=== PATIENT | male | born 1945 | race Caucasian/White ===

== ENCOUNTER 2018-12-29 09:30 | Outpatient (CLI) | payer MEDICARE, OTHER ==
--- NOTE | 2019-02-14 15:56 | CONSULTATION REPORT ---
DATE OF CONSULTATION: 12/29/2018 CHIEF COMPLAINT: Headache. HISTORY OF PRESENT ILLNESS: The patient is a 73-year-old male who presents for evaluation of chronic headache. He was referred by his primary care physician, Dr. Sly Donovan. The patient has also recently seen Neurology at [facility] in [place], [place]. I do have the note from the Neurology Clinic from October. There is no firm diagnosis for his headache. The patient states that he has had MRI of the brain and cervical spine as well as cervical spine x-rays that were ordered by the Neurology office, however, he did not bring in any radiology report or CD images of those studies for my review, and I do not have access to the Neurology Clinic notes. He does have a follow-up with the neurology group on 01/18/19. He states that he has not been given a diagnosis and has not been given any treatments for his headache other than some pain medication. In October he was given oxycodone with Tylenol 10/325 b.i.d. and the patient states in November that was changed to oxycodone 5s without Tylenol b.i.d. The patient says he has headaches 5-6 times a week and when he has a headache he will take anywhere from 1 to 3 of the oxycodone 5s but on days where he does not have a headache he wont take any oxycodone. The patient states that his headaches began about 1-1/2 years ago. He denies any trauma or specific inciting event. He does report having a history of temporal arteritis in 2010 but that did resolve over 8 years ago. The patient describes his headache as intermittent, severe, stabbing, burning, shooting in character, rated 8/10 to 10/10 when present but is 0/10 when it is not present. The pain is located primarily at the right temporal region with radiation behind the orbit, radiation to the frontal region of the cranium and the temporal region of the cranium with some radiation into the parietal region as well. He also has some pain radiation intermittently to the right jaw. He reports a much milder pain on the left side in the same anatomic region but much less in severity. He denies any aura, photophobia, nausea, vomiting, vision changes with the headaches. He denies any specific triggers or worsening factors for the pain. The only thing that has given any pain relief has been the oxycodone. He did try various [id number] medicines without relief. He has seen his credit review officer and had his eyes examined and other than wearing glasses he was told there were no other problems with his eyes. He has also seen his dentist about the jaw pain and the dentist did not have any concerns or any findings. He denies chest pain, palpitations, dyspnea, nausea, vomiting, diarrhea, vertigo, fevers, chills, dysuria, constipation or increased depression or anxiety. PAST MEDICAL HISTORY: Positive for anxiety, back pain, depression, heart disease, irritable bowel syndrome, shortness of breath with exertion. PAST SURGICAL HISTORY: He had left shoulder surgery in the past and had cardiac stents placed in 2015 and 2016. FAMILY HISTORY: Positive for cancer in his dad and 1 sibling. SOCIAL HISTORY: The patient is retired. He smokes about 1 pack per day with a 60-plus pack year history. He denies any alcohol or recreational drug use. REVIEW OF SYSTEMS: A 14-point review of systems was performed and was positive for fatigue, decreased appetite, loss of hearing, glasses, shortness of breath with activity, leg swelling after climbing stairs, shortness of breath with walking, headaches, arm and leg weakness. For full details of the review of systems, please see the medical chart. CURRENT MEDICATIONS INCLUDE: Rexulti 1 mg; hydroxyzine 25 mg; metoprolol ER 25 mg, aspirin 81 mg, trazodone 100 mg, amlodipine 10 mg, atorvastatin 40 mg, ranitidine 300 mg, metaxolone 800 mg and oxycodone 5 mg b.i.d. p.r.n. PHYSICAL EXAMINATION: VITALS: Temperature 97, blood pressure 118/74, pulse 69, respirations 22, oxygen saturation 97% on room air. GENERAL: The patient is alert and oriented x 4, in no acute distress. HEENT: Pupils are equal and reactive to light and accommodation. Extraocular muscles intact. CARDIOVASCULAR: Regular rate and rhythm. No murmurs, rubs or gallops. PULMONARY: Lungs are clear to auscultation bilaterally. ABDOMEN: Soft, nontender, nondistended. No hepatosplenomegaly. : Deferred. SKIN: No rashes or lesions observed. MUSCULOSKELETAL: Inspection of neck shows no gross abnormalities. Cervical spine range of motion is full in flexion, extension, lateral rotation and side bending with some mild pain at end range of extension. There is mild tenderness to palpation at the bilateral cervical paraspinal muscles and upper trapezius muscles. Spurlings is negative bilaterally. NEUROLOGIC: Cranial nerves II-XII grossly intact. Deep tendon reflexes are 2+/4 for bilateral biceps, brachioradialis and triceps tendons symmetrically. Manual muscle testing shows normal strengths of 5/5 for bilateral shoulder abduction, elbow flexion, elbow extension, wrist extension, finger flexion, finger abduction. Sensation to light touch is intact in all dermatomes in bilateral upper extremities symmetrically. Spurlings is negative bilaterally. Negative Hofmanns bilaterally. ASSESSMENT: 1. Chronic headache pain. 2. Probable right trigeminal neuralgia. The patients symptoms and physical exam are most consistent with a trigeminal neuralgia on the right and to a milder degree on the left, however, I have not been able to review any of his imaging studies for further evaluation. PLAN: 1. I recommend right trigeminal nerve block to assist in diagnosis of trigeminal neuralgia as well as treatment of his headache pain by using a combination of anesthetic and steroid with the injection. The patient is uncertain whether he wants to have the injection because he states that he is afraid of injections and he would like some time to think about it. I advised the patient to contact the clinic if he decides to proceed with the injections. 2. Continue to follow up with the Neurology Clinic at [facility] for further evaluation of his chronic headaches as well. 3. The patient asked if I could prescribe pain medications and unfortunately I advised him that I am not performing pain medication management or prescribing pain medications out of this clinic in [place] since I am here only intermittently and primarily here for surgeries and procedures. However, I did offer to have the patient follow up with me at [facility] in [place] where I could provide the pain management because I am there routinely and that clinic is set up to do pain medication management. The patient would like to think about that and will contact the clinic if he wants to see me in [place] as well. Note: I spent over 35 minutes with the patient of which greater than 50% was spent in counseling and coordination of care for his chronic headache pain ([id number]). Breezy Middleton M.D. EARL/geri Cc: Sly Donovan M.D. [facility] [address] [place] [phone] Sent via fax [phone] [facility]
== END 2018-12-29 11:00 ==
LOC: OUT 09:30
PROVIDERS: ATTEND Physical Medicine & Rehabilitation
DX: R51 Headache (principal); G89.29 Other chronic pain
CPT/HCPCS: 99203; G0463

== ENCOUNTER 2019-03-15 11:55 | Outpatient (CLI) | payer MEDICARE, OTHER ==
--- NOTE | 2019-03-22 08:53 | OP Clinic Progress Note ---
CHIEF COMPLAINT: Headache. PROGRESS NOTE: HPI: The patient is a 73-year-old male who returns for management of chronic headache. He was referred by his primary care physician Dr. Sly Donovan. I saw the patient for initial visit on December 29, 2018. My plan at that visit is I recommended right trigeminal nerve block to assist in the diagnosis of trigeminal neuralgia as well as treatment of his headache pain by using a combination of anesthetic and steroid in the injection. Patient returns today for the right trigeminal nerve block. However, while I was meeting with the patient to review the informed consent and I discussed the risks and benefits of the procedure, the patient expressed his concern about whether to get the injection today. He states that about four weeks ago he was given a muscle relaxer medication by Dr. Donovan, although the patient does not know what specific medication that is, but he states that ever since he started taking the muscle relaxer his headaches have improved significantly and he has only had four headaches in the last four weeks. The patient states that those four days he had headaches were days he had not taken the muscle relaxer. So, at this point the patient would like to postpone the right trigeminal nerve block and trial the muscle relaxer for another month or so. The patient also expressed his anxiety about getting injections and says he has a fear of needles. Note that the patient was accompanied by his and at the end of my visit with the patient I overheard he and his in the hallway discussing his issue and the patients was very upset that the patient had declined the injection and she was stating that the patient has not had significant relief of his headaches and he was just saying that today to get out of the injection because he is afraid of the injection. I cannot confirm whether what the is saying is true and obviously in treating the patient I need to go by his history and explanation and his desires. The patient describes his headaches as intermittent, severe, stabbing, burning, shooting in character rated 8/10 to 10/10 when present but 0/10 when not present. Pain is located primarily at the right temporal region with radiation behind the orbit, radiation to the frontal region of the cranium and the temporal region of the cranium with some radiation into the parietal region as well. He also has some pain radiation intermittently into the right jaw, but this occurs less often. He reports a much milder pain on the left side in the same anatomic region but much less in severity. He denies any aura, photophobia, nausea, vomiting, sonophobia, vision changes etc. with the headaches. He denies any specific triggers or worsening factors for the pain. Prior to the muscle relaxer the only thing that has given him pain relief was oxycodone. He says he has tried various [id number] medicines without relief. He has seen his rice dryer mechanic and had his eyes examined and other than wearing glasses he was told there were no problems with his eyes. He has also seen a dentist about his jaw pain and the dentist did not have any concerns or findings. Patient denies chest pain, palpitations, dyspnea, nausea, vomiting, diarrhea, vertigo, fevers, chills, dysuria, constipation or increased depression or anxiety. PAST MEDICAL HISTORY: Positive for anxiety, back pain, depression, heart disease, irritable bowel syndrome, shortness of breath with exertion and headaches and jaw pain. PAST SURGICAL HISTORY: He had left shoulder surgery in the past and had cardiac stents placed in 2014 and 2016. FAMILY HISTORY: Positive for cancer in his dad and one sibling. SOCIAL HISTORY: The patient is retired. He smokes about one pack a day with a 60+ pack year history. He denies any alcohol or recreational drug use. REVIEW OF SYSTEMS: A 14-point review of systems was performed and was positive for fatigue, decreased appetite, loss of hearing, glasses, shortness of breath with activity, leg swelling after climbing stairs, shortness of breath with walking, headaches, arm and leg weakness. For full details of the review of systems please see the medical chart. CURRENT MEDICATIONS: Current medications include Rexulti 1 mg, hydroxyzine 25 mg, metoprolol ER 25 mg, aspirin 81 mg, trazadone 100 mg, amlodipine 10 mg, atorvastatin 40 mg, ranitidine 300 mg, metaxalone 800 mg, oxycodone 5 mg b.i.d. p.r.n., and a new muscle relaxer which patient does not know what specific medication that is. PHYSICAL EXAMINATION: VITALS: Temperature 98 degrees. Pulse 88, respirations 20, blood pressure 118/76. Oxygen saturation 96% on room air. GENERAL: The patient is alert and oriented x 4, no acute distress. HEENT: Pupils are equal and reactive to light and accommodation. Extraocular muscles intact. CARDIOVASCULAR: Regular rate and rhythm. No murmurs, rubs or gallops. PULMONARY: Lungs are clear to auscultation bilaterally. ABDOMEN: Soft, nontender, nondistended. No hepatosplenomegaly. : Deferred. SKIN: No rashes or lesions observed. MUSCULOSKELETAL: Inspection of neck shows no gross abnormalities. Cervical spine range of motion is full in flexion, extension, lateral rotation and side bending with some mild pain at end range of extension. There is mild tenderness to palpation at the bilateral cervical paraspinal muscles and upper trapezius muscles. Spurlings is negative bilaterally. NEUROLOGIC: Cranial nerves II-XII grossly intact. Deep tendon reflexes are 2+/4 for bilateral biceps, brachioradialis and triceps tendons symmetrically. Manual muscle testing shows normal strength of 5/5 for bilateral shoulder abduction, shoulder flexion, elbow flexion, elbow extension, wrist extension, finger flexion and finger abduction. Sensation to light touch is intact in all dermatomes in bilateral upper extremities symmetrically. Spurlings is negative bilaterally. Negative Hoffmans bilaterally. ASSESSMENT: 1. Chronic headache pain. 2. Probable right trigeminal neuralgia. The patients symptoms and physical exam are most consistent with the trigeminal neuralgia on the right and to a milder degree on the left. However, I have not been able to review any of his imaging studies for further evaluation. PLAN: 1. I recommend right trigeminal nerve block to assist in diagnosis of trigeminal neuralgia as well as treatment of his headache pain by using a combination of anesthetic and steroid with the injection. However, the patient declined to get that injection as was originally scheduled today. He would like to postpone the injection for at least a month to give more time to see how well the muscle relaxers are going to work for his headache. 2. Continue to follow at the neurology clinic at [facility] for further evaluation of his chronic headaches as well. 3. Continue pain medications and muscle relaxer prescribed by primary care provider. 4. Return to clinic as needed. Breezy Middleton M.D. KINGSLEY/kit X MTDD
== END 2019-03-15 12:25 ==
LOC: OUT 11:55
PROVIDERS: ATTEND Physical Medicine & Rehabilitation
DX: R51 Headache (principal); G89.29 Other chronic pain
CPT/HCPCS: 99213; G0463